=== PATIENT | female | born 1985 | race Caucasian/White ===

== ENCOUNTER 2016-12-02 11:28 | Emergency (ER) | payer OTHER ==
[~2016-12-02] VITALS: Ht 167.6 cm; Wt 61.2 kg
[~2016-12-02 11:28] MED LIST: CYCLOBENZAPRINE10 MG ORAL; TYLENOL325 MG ORAL
[2016-12-02 11:59] VITALS: BP 106/71
--- NOTE | 2016-12-02 12:19 | Emergency Room Report ---
History of Present Illness General Chief Complaint: Laceration Source: Patient Present Illness HPI The patient is a 31-year-old female presenting with a left index finger laceration which occurred last night at work. The patient states that she was using a serrated knife when it slipped. Pain is described as a 5/10 dull ache it does not radiate from the index finger. Patient denies any numbness or tingling. The patient denies prior injury of the finger. The patient states that she cleaned out the wound with peroxide last night and alcohol this morning. The patient states her last tetanus shot was 2 months prior. The patient denies any other symptoms Allergies: Coded Allergies: No Known Allergies (Unverified , 03/24/16) Patient History Past Medical History: see triage record Pertinent Family History: none Last Menstrual Period: 11/15/2016 Reviewed Nursing Documentation: PMH: Agreed, PSxH: Agreed Nursing Documentation-PMH Past Medical History: No Stated History Review of Systems All Other Systems: negative except mentioned in HPI Physical Exam Vital Signs Date Time Temp Pulse Resp B/P Pulse Ox O2 Delivery O2 Flow Rate FiO2 12/02/16 11:57 98.2 60 14 106/71 99 Room Air Sp02 EP Interpretation: reviewed, normal General Appearance: no apparent distress, alert, GCS 15, non-toxic Head: normocephalic, atraumatic Eyes: bilateral eye PERRL, bilateral eye normal inspection Musculoskeletal: tender - TTP over distal L index finger Neurologic: alert, oriented x3, responsive, motor strength/tone normal, sensory intact, speech normal Psychiatric: judgement/insight normal, memory normal, mood/affect normal, no suicidal/homicidal ideation Skin: laceration - 2cm linear laceration of L index finger lateral side distal to DIPJ Lymphatic: no adenopathy Procedures Laceration/Wound Repair Laceration/Wound Repair : Consent: Verbal Wound Location: upper extremity Wound's Depth, Shape: superficial, linear Wound Length (cm): 2 Wound Explored: clean Irrigated w/ Saline (ccs): 200 Betadine Prep?: Yes Volume Anesthetic (ccs): 0 Wound Debrided: minimal Wound Repaired With: Dermabond Layer Closure?: No Sterile Dressing Applied?: Yes Splint Applied?: No Sling Applied?: No Patient Tolerated: Well Complications: None Medical Decision Making PA Attestation Dr. Sanchez is my supervising physician. Patient management was discussed with my supervising physician Diagnostic Impression: Primary Impression: Finger laceration ER Course Dr. Sanchez is my supervising physician. Patient management was discussed with my supervising physician Ddx considered include but not limited to fracture, tendon/ligament injury, avulsion, nerve damage PE: vitals WNL. NAD 2cm linear laceration of L index finger lateral side distal to DIPJ. SILT. No bleeding. Full AROM. No bony tenderness. The wound was irrigated with normal saline and cleaned with betadine. Dermabond was applied. The wound was well approximated and the patient tolerated the procedure well. The patient is discharged home with a prescription for Motrin. ER precautions are given. Patient will continue to keep the wound clean and dry. Last Vital Signs Date Time Temp Pulse Resp B/P Pulse Ox O2 Delivery O2 Flow Rate FiO2 12/02/16 11:59 98.2 60 14 106/71 99 Room Air Status: improved Disposition: HOME, SELF-CARE Condition: Improved Scripts Ibuprofen* (MOTRIN*) 600 Mg Tablet 600 MG ORAL Q8H Y for For Pain, #30 TAB 0 Refills Prov: KRISHNA LAGUNA 12/02/16 KRISHNA LAGUNA Dec 02, 2016 12:19
[2016-12-02] MEDS ORDERED: IBUPROFEN600 MG ORAL (12:32)
[2016-12-02 12:52] VITALS: BP 106/71
== END 2016-12-02 12:52 | disposition home or self-care (01) ==
LOC: EMR 12:50
DX: S61.211A Laceration without foreign body of left index finger without damage to nail, initial encounter (principal); W26.0XXA Contact with knife, initial encounter; Y93.9 Activity, unspecified; Y92.9 Unspecified place or not applicable; Y99.9 Unspecified external cause status